=== PATIENT | female | born 1965 | race Caucasian/White ===

== ENCOUNTER 2025-03-12 17:28 | Inpatient (IN) | payer MEDICARE ==
[2025-03-12 19:04] LABS: ALT (SGPT) 8 U/L (Less than 34); AST (SGOT) 12 U/L (11-34); Albumin 4.0 g/dL (3.1-4.5); Alkaline Phosphatase 95 U/L (40-110); Anion Gap 16 mmol/L (10-20); BUN (Urea Nitrogen) 46 mg/dL (9.8-20.1); Bilirubin, Total 0.6 mg/dL (0.3-1.2); Calc. Creatinine Clearance 0 mL/min (70-130); Calcium 9.8 mg/dL (7.8-10.44); Carbon Dioxide 23 mmol/L (22-29); Chloride 103 mmol/L (98-107); Globulin 3.9 g/dL (2.4-3.5); Glucose 149 mg/dL (70-105); Potassium 5.2 mmol/L (3.5-5.1); Sodium 137 mmol/L (136-145)
[2025-03-12] MEDS ORDERED: Ketorolac Tromethamine 30 MG (1 mL) VIAL ONE (19:08)
[2025-03-12 19:21] LABS: Hematocrit 45.5 % (34.9-44.5); Hemoglobin 14.0 g/dL (12.0-15.5); Mean Corpuscular Hemoglobin 27.1 pg (27.0-33.0); Mean Corpuscular Volume 88.0 fL (81.6-98.3); Platelet Count 165 10x3/uL (150-450); Red Blood Cell (RBC) Count 5.17 10x6/uL (3.90-5.03); White Blood Cell (WBC) Count 7.74 10x3/uL (3.5-10.5)
[2025-03-12 20:07] LABS: MDiff Complete? YES; Platelet Adequacy Comment Appears Adequate; RBC Morphology Within Normal Limits
[2025-03-12 21:43] LABS: Glucose, Urine (Dipstick) Normal (Negative); Leukocyte 500 (Negative); Protein, Urine (Dipstick) 500 mg/dl (Neg-Trace); Specific Gravity, Urine 1.015 (1.005-1.030)
[2025-03-12 22:25] LABS: Bacteria/HPF 3+ HPF (None Seen); CAUTI Indications for Culture Pelvic or flank pain; Mucous/LPF 1+ LPF (<2+); WBC/HPF Greater than 50 HPF (0-3)
[2025-03-12 22:27] LABS: Urine Culture Reflex Yes Yes
[2025-03-12] MEDS ORDERED: Acetaminophen 500 MG TAB ONE (22:47)
[2025-03-12] MEDS ORDERED: cefTRIAXone (ROCEPHIN) 1 GM VIAL ONE (22:49)
[2025-03-12] MEDS ORDERED: Ondansetron PF 4 MG/2 ML Vial IVP PRN (23:24)
[2025-03-12] MEDS ORDERED: Guaifenesin DM 100-10/5 ML UDCUP PO PRN (23:24)
[2025-03-12] MEDS ORDERED: Senokot S 8.6-50 MG TAB PO PRN (23:24)
[2025-03-12] MEDS ORDERED: Calcium Carbonate 500 MG ChewTAB PO PRN (23:24)
[2025-03-12] MEDS ORDERED: Dextrose 50% Abboject 50 ML SYRINGE SLOW IVP PRN (23:24)
[2025-03-12] MEDS ORDERED: Glucagon 1 MG/ML KIT IM PRN (23:24)
[2025-03-12] MEDS ORDERED: Acetaminophen 325 MG TAB PO PRN (23:24)
[2025-03-13 00:40] VITALS: BMI 36.0
[2025-03-13] MEDS: cefTRIAXone\\ROCEPHIN 1 GM in Sodium Chloride 0.9% 100 ML IVPB SCH (00:51)
[2025-03-13] MEDS: LOKELMA 10 GM PACKET PO SCH ×2 (01:00→21:39)
[2025-03-13 05:53] LABS: #Basophils 0.05 10x3/uL (0.0-0.2); #Eosinophils 0.16 10x3/uL (0.0-0.5); #Monocytes 1.06 10x3/uL (0.0-1.1); #Neutrophils 5.02 10x3/uL (1.5-8.4); %Basophils 0.6 % (0.0-2.0); %Eosinophils 2.1 % (0.0-6.0); %Lymphocytes 17.9 % (18.0-47.0); %Monocytes 13.8 % (0.0-10.0); %Neutrophils 65.2 % (40.0-75.0); Hematocrit 36.3 % (34.9-44.5); Hemoglobin 11.5 g/dL (12.0-15.5); Mean Corpuscular Hemoglobin 26.9 pg (27.0-33.0); Mean Corpuscular Volume 85.0 fL (81.6-98.3); Platelet Count 148 10x3/uL (150-450); Red Blood Cell (RBC) Count 4.27 10x6/uL (3.90-5.03); White Blood Cell (WBC) Count 7.70 10x3/uL (3.5-10.5)
[2025-03-13 05:58] LABS: Anion Gap 13 mmol/L (10-20); BUN (Urea Nitrogen) 47 mg/dL (9.8-20.1); Calc. Creatinine Clearance 46 mL/min (70-130); Calcium 8.5 mg/dL (7.8-10.44); Carbon Dioxide 22 mmol/L (22-29); Chloride 107 mmol/L (98-107); Glucose 109 mg/dL (70-105); Potassium 4.5 mmol/L (3.5-5.1); Sodium 137 mmol/L (136-145)
[2025-03-13] MEDS: Folic Acid 1 MG TAB PO SCH (08:50)
[2025-03-13] MEDS: Aspirin 81 mg Enteric Coated Tablet PO SCH (08:50)
[2025-03-13] MEDS: Famotidine 20 MG TAB PO SCH (08:50)
[2025-03-13] MEDS ORDERED: Enoxaparin 40 MG (0.4 mL) SYRINGE SC SCH (09:00)
[2025-03-13] MEDS: Furosemide 20 MG (2 mL) VIAL SLOW IVP SCH ×2 (13:01→20:35)
[2025-03-13 16:16] LABS: Anion Gap 13 mmol/L (10-20); BUN (Urea Nitrogen) 43 mg/dL (9.8-20.1); Calc. Creatinine Clearance 48 mL/min (70-130); Calcium 8.5 mg/dL (7.8-10.44); Carbon Dioxide 21 mmol/L (22-29); Chloride 106 mmol/L (98-107); Glucose 165 mg/dL (70-105); Potassium 5.0 mmol/L (3.5-5.1); Sodium 135 mmol/L (136-145)
[2025-03-13] MEDS: cefTRIAXone\\ROCEPHIN 2 GM in Sodium Chloride 0.9% 100 ML IVPB SCH (20:34)
[2025-03-13] MEDS: Melatonin 3 MG TAB PO PRN (20:43)
[2025-03-13] MEDS ORDERED: Enoxaparin 30 MG (0.3 mL) SYRINGE SC SCH (21:00)
[2025-03-14] MEDS ORDERED: Furosemide 20 MG (2 mL) VIAL SLOW IVP SCH (06:00)
[2025-03-14 06:05] LABS: #Basophils 0.03 10x3/uL (0.0-0.2); #Eosinophils 0.14 10x3/uL (0.0-0.5); #Monocytes 0.63 10x3/uL (0.0-1.1); #Neutrophils 2.85 10x3/uL (1.5-8.4); %Basophils 0.7 % (0.0-2.0); %Eosinophils 3.1 % (0.0-6.0); %Lymphocytes 18.7 % (18.0-47.0); %Monocytes 14.0 % (0.0-10.0); %Neutrophils 63.3 % (40.0-75.0); Hematocrit 36.9 % (34.9-44.5); Hemoglobin 11.7 g/dL (12.0-15.5); Mean Corpuscular Hemoglobin 26.8 pg (27.0-33.0); Mean Corpuscular Volume 84.6 fL (81.6-98.3); Platelet Count 145 10x3/uL (150-450); Red Blood Cell (RBC) Count 4.36 10x6/uL (3.90-5.03); White Blood Cell (WBC) Count 4.50 10x3/uL (3.5-10.5)
[2025-03-14 06:20] LABS: Anion Gap 14 mmol/L (10-20); BUN (Urea Nitrogen) 42 mg/dL (9.8-20.1); Calc. Creatinine Clearance 46 mL/min (70-130); Calcium 8.5 mg/dL (7.8-10.44); Carbon Dioxide 21 mmol/L (22-29); Chloride 109 mmol/L (98-107); Glucose 202 mg/dL (70-105); Potassium 4.8 mmol/L (3.5-5.1); Sodium 139 mmol/L (136-145)
[2025-03-14] MEDS: Furosemide 40 MG (4 mL) VIAL SLOW IVP SCH (06:44)
[2025-03-15 05:00] LABS: #Basophils 0.04 10x3/uL (0.0-0.2); #Eosinophils 0.24 10x3/uL (0.0-0.5); #Monocytes 0.70 10x3/uL (0.0-1.1); #Neutrophils 1.93 10x3/uL (1.5-8.4); %Basophils 1.0 % (0.0-2.0); %Eosinophils 5.9 % (0.0-6.0); %Lymphocytes 27.9 % (18.0-47.0); %Monocytes 17.3 % (0.0-10.0); %Neutrophils 47.7 % (40.0-75.0); Hematocrit 38.7 % (34.9-44.5); Hemoglobin 12.3 g/dL (12.0-15.5); Mean Corpuscular Hemoglobin 26.8 pg (27.0-33.0); Mean Corpuscular Volume 84.3 fL (81.6-98.3); Platelet Count 160 10x3/uL (150-450); Red Blood Cell (RBC) Count 4.59 10x6/uL (3.90-5.03); White Blood Cell (WBC) Count 4.05 10x3/uL (3.5-10.5)
[2025-03-15 05:15] LABS: Anion Gap 12 mmol/L (10-20); BUN (Urea Nitrogen) 35 mg/dL (9.8-20.1); Calc. Creatinine Clearance 54 mL/min (70-130); Calcium 9.1 mg/dL (7.8-10.44); Carbon Dioxide 25 mmol/L (22-29); Chloride 108 mmol/L (98-107); Glucose 197 mg/dL (70-105); Potassium 4.6 mmol/L (3.5-5.1); Sodium 140 mmol/L (136-145)
[2025-03-15] MEDS: Enoxaparin 40 MG (0.4 mL) SYRINGE SC SCH (20:49)
[2025-03-15] MEDS: Senokot S 8.6-50 MG TAB PO SCH (23:43)
[2025-03-16 06:04] LABS: #Basophils 0.04 10x3/uL (0.0-0.2); #Eosinophils 0.32 10x3/uL (0.0-0.5); #Monocytes 0.76 10x3/uL (0.0-1.1); #Neutrophils 2.72 10x3/uL (1.5-8.4); %Basophils 0.7 % (0.0-2.0); %Eosinophils 5.9 % (0.0-6.0); %Lymphocytes 28.8 % (18.0-47.0); %Monocytes 14.0 % (0.0-10.0); %Neutrophils 50.4 % (40.0-75.0); Hematocrit 37.6 % (34.9-44.5); Hemoglobin 12.0 g/dL (12.0-15.5); Mean Corpuscular Hemoglobin 26.7 pg (27.0-33.0); Mean Corpuscular Volume 83.6 fL (81.6-98.3); Platelet Count 172 10x3/uL (150-450); Red Blood Cell (RBC) Count 4.50 10x6/uL (3.90-5.03); White Blood Cell (WBC) Count 5.41 10x3/uL (3.5-10.5)
[2025-03-16 06:19] LABS: Anion Gap 13 mmol/L (10-20); BUN (Urea Nitrogen) 29 mg/dL (9.8-20.1); Calc. Creatinine Clearance 62 mL/min (70-130); Calcium 9.0 mg/dL (7.8-10.44); Carbon Dioxide 26 mmol/L (22-29); Chloride 106 mmol/L (98-107); Glucose 150 mg/dL (70-105); Magnesium 1.9 mg/dL (1.6-2.6); Potassium 4.8 mmol/L (3.5-5.1); Sodium 140 mmol/L (136-145)
[2025-03-16 07:49] VITALS: TEMP 97.8
[2025-03-16 11:24] VITALS: BP 149/81
== END 2025-03-16 13:00 | disposition home or self-care (01) | DRG 871 ==
LOC: CSHERS 17:28 → CSHTELE 23:28
PROVIDERS: ADMIT Student in an Organized Health Care Education/Training Program; ATTEND Internal Medicine
DX: A41.51 Sepsis due to Escherichia coli [E. coli] (principal); J96.01 Acute respiratory failure with hypoxia; N10 Acute pyelonephritis; J44.1 Chronic obstructive pulmonary disease with (acute) exacerbation; N17.9 Acute kidney failure, unspecified; R65.20 Severe sepsis without septic shock; I12.9 Hypertensive chronic kidney disease with stage 1 through stage 4 chronic kidney disease, or unspecified chronic kidney disease; E11.22 Type 2 diabetes mellitus with diabetic chronic kidney disease; E87.5 Hyperkalemia; E78.5 Hyperlipidemia, unspecified; I71.43 Infrarenal abdominal aortic aneurysm, without rupture; N18.32 Chronic kidney disease, stage 3b; F32.A Depression, unspecified; K59.00 Constipation, unspecified; F17.210 Nicotine dependence, cigarettes, uncomplicated; Z98.890 Other specified postprocedural states; Z90.89 Acquired absence of other organs; Z88.1 Allergy status to other antibiotic agents; Z91.041 Radiographic dye allergy status; Z90.710 Acquired absence of both cervix and uterus; I69.331 Monoplegia of upper limb following cerebral infarction affecting right dominant side; Z71.6 Tobacco abuse counseling
CPT/HCPCS: 36415; 36416; 71045; 74176; 80048; 80053; 81001; 83605; 83735; 83880; 84145; 85025; 86140; 87040; 87077; 87086; 87186; 87428; 93306; 94640; 94760; 94762; 96374; 96375; J0696; J1650; J1815; J1885; J1940; J2270; J7030; J7626